=== PATIENT | male | born 1950 | race African-American/Black ===

== ENCOUNTER 2023-12-15 18:28 | Inpatient (IN) | payer OTHER, MEDICAID ==
[~2023-12-15] VITALS: Ht 175.3 cm; Wt 94.3 kg
[2023-12-15 19:20] VITALS: BP_SYST 183; PULSE 86; RESP 17; TEMP 98; O2SAT 99
[2023-12-15 19:37] LABS: ANION GAP 12 (5-15); CALCIUM 8.1 mg/dL (8.4-11.0); CARBON DIOXIDE 25 mmol/L (23-29); CHLORIDE 112 mmol/L (98-107); CREATININE 3.26 mg/dL (0.55-1.30); GLUCOSE 141 mg/dL (74-106); POTASSIUM 3.9 mmol/L (3.5-5.1); SODIUM SERUM 149 mmol/L (136-145); UREA NITROGEN, BLOOD 47 mg/dL (8-21)
[2023-12-15 19:56] LABS: ALANINE AMINOTRANSFERASE 13 U/L (12-78); ALBUMIN 2.4 g/dL (3.4-4.8); ASPARTATE AMINOTRANSFERASE 13 U/L (10-37); TOTAL BILIRUBIN 0.2 mg/dL (0.0-1.0); TOTAL PROTEIN, SERUM 7.2 g/dL (6.4-8.3)
[2023-12-15 20:10] LABS: BILIRUBIN,DIRECT 0.1 mg/dL (0.0-0.3)
[2023-12-15 20:30] VITALS: O2SAT 95
[2023-12-15 22:28] LABS: BASOPHILS % (AUTO) 0.4 % (0.0-2.0); EOSINOPHILS # (AUTO) 0.2 K/uL (0.0-0.4); EOSINOPHILS % (AUTO) 3.9 % (0.0-4.0); HEMATOCRIT 36.9 % (36-54); HEMOGLOBIN 12.3 g/dL (14.0-18.0); LYMPHOCYTES # (AUTO) 1.5 K/uL (1.0-5.5); MEAN CORPUSCULAR HEMOGLOBIN 33 pg (27-31); MEAN CORPUSCULAR HGB CONC 33 % (32-36); MEAN CORPUSCULAR VOLUME 100 fL (79.0-98.0); MONOCYTES # (AUTO) 0.7 K/uL (0.0-1.0); MONOCYTES % (AUTO) 12.4 % (1.7-9.3); NEUTROPHILS # (AUTO) 3.2 K/uL (1.8-7.7); NEUTROPHILS % (AUTO) 56.3 % (40.0-70.0); PLATELET COUNT (AUTO) 168 K/uL (130-430); RED BLOOD CELL COUNT(AUTO) 3.68 MIL/uL (4.2-6.2); RED CELL DISTRIBUTION WIDTH 15.4 % (9.0-15.0); WHITE BLOOD COUNT (AUTO) 5.7 K/uL (4.8-10.8)
[2023-12-15] MEDS: NACL 0.9% 1,000 ML IV ONE (23:25)
[2023-12-15 23:59] LABS: BILIRUBIN,URINE NEGATIVE (NEGATIVE); BLOOD, URINE 1+ (NEGATIVE); CLARITY/URINE SL CLOUDY (CLEAR); COLOR,URINE YELLOW (YELLOW); GLUCOSE,URINE NEGATIVE (NEGATIVE); KETONES,URINE NEGATIVE (NEGATIVE); LEUKOCYTE ESTERASE ,URINE 2+ (NEGATIVE); NITRITE, URINE POSITIVE (NEGATIVE); PROTEIN URINE 3+ (NEGATIVE); UROBILINOGEN,URINE 0.2 (0.2-1.0)
[2023-12-16] MEDS ORDERED: OXYB5TAB16 PO (00:35)
[2023-12-16] MEDS ORDERED: LIP20 PO (00:35)
[2023-12-16] MEDS ORDERED: MONT-40 PO (00:35)
[2023-12-16] MEDS ORDERED: SITA100T11 PO (00:35)
[2023-12-16] MEDS ORDERED: NEU400 PO (00:35)
[2023-12-16] MEDS ORDERED: FINA-37 PO (00:35)
[2023-12-16] MEDS ORDERED: LOSA-415 PO (00:35)
[2023-12-16] MEDS ORDERED: FURO-150 PO (00:35)
[2023-12-16] MEDS ORDERED: METF-379 PO (00:35)
[2023-12-16] MEDS ORDERED: LOP600 PO (00:35)
[2023-12-16] MEDS ORDERED: ASPI-1393 PO (00:35)
[2023-12-16] MEDS ORDERED: FAMO20TA8 PO (00:35)
[2023-12-16 01:08] LABS: BACTERIA,URINE MODERATE /HPF (None Seen)
[2023-12-16 01:18] LABS: BARBITURATE, URINE NEGATIVE (NEG <=200)
[2023-12-16 01:19] LABS: BENZODIAZEPINE, URINE NEGATIVE (NEG <=150); CANNABINOID, URINE NEGATIVE (NEG <=50); COCAINE, URINE NEGATIVE (NEG <=150); METHAMPHETAMINES SCREEN,URINE NEGATIVE (NEG <=500); OPIATE, URINE NEGATIVE (NEG <=100); PHENCYCLIDINE SCREEN,URINE NEGATIVE (NEG <=25); URINE AMPHETAMINE NEGATIVE (NEG <=500); URINE METHADONE NEGATIVE (NEG <=200); URINE OXYCODONE SCREEN NEGATIVE (NEG <=100)
[2023-12-16 01:20] LABS: UR TRICYCLIC ANTIDEPRESSANTS NEGATIVE (NEG <=300)
[2023-12-16] MEDS: cefTRIAXone 1 GM in D5W 50 ML IV ONE (01:24)
[2023-12-16] MEDS ORDERED: cefTRIAXone 1 GM VIAL ONE (01:26)
[2023-12-16] MEDS: D5/0.45 NS 1,000 ML IV SCH (06:46)
[2023-12-16 09:50] VITALS: BP_SYST 149; PULSE 68; RESP 18; TEMP 97.1; O2SAT 95
[2023-12-16 10:30] VITALS: BP_SYST 149; PULSE 68; RESP 17; TEMP 97.1; O2SAT 95
[2023-12-16] MEDS ORDERED: NALOXONE HCL 0.4 MG/ML AMP (NARCAN) IVP PRN ×2 (10:30)
[2023-12-16] MEDS ORDERED: HYDROcodone/ACETAMIN 5-325 MG TAB (NORCO/ VICODIN) PO PRN (10:30)
[2023-12-16] MEDS ORDERED: LORazepam 2 MG/ML VIAL IVP PRN (10:30)
[2023-12-16] MEDS ORDERED: HYDROcodone/ACETAMIN 10-325 MG TAB PO PRN (10:30)
[2023-12-16] MEDS ORDERED: ONDANSETRON HCL 4 MG/2 ML VIAL IVP PRN (10:30)
[2023-12-16 11:14] LABS: BASOPHILS % (AUTO) 0.4 % (0.0-2.0); EOSINOPHILS # (AUTO) 0.2 K/uL (0.0-0.4); EOSINOPHILS % (AUTO) 2.5 % (0.0-4.0); HEMATOCRIT 39.4 % (36-54); HEMOGLOBIN 13.2 g/dL (14.0-18.0); LYMPHOCYTES % (AUTO) 17.4 % (20.5-51.5); MEAN CORPUSCULAR HEMOGLOBIN 34 pg (27-31); MEAN CORPUSCULAR HGB CONC 34 % (32-36); MEAN CORPUSCULAR VOLUME 100 fL (79.0-98.0); MONOCYTES # (AUTO) 0.6 K/uL (0.0-1.0); MONOCYTES % (AUTO) 10.7 % (1.7-9.3); NEUTROPHILS # (AUTO) 4.1 K/uL (1.8-7.7); PLATELET COUNT (AUTO) 152 K/uL (130-430); RED BLOOD CELL COUNT(AUTO) 3.94 MIL/uL (4.2-6.2); RED CELL DISTRIBUTION WIDTH 15.6 % (9.0-15.0)
[2023-12-16 11:18] LABS: ALANINE AMINOTRANSFERASE 14 U/L (12-78); ALBUMIN 2.6 g/dL (3.4-4.8); ANION GAP 13 (5-15); ASPARTATE AMINOTRANSFERASE 14 U/L (10-37); CALCIUM 8.4 mg/dL (8.4-11.0); CARBON DIOXIDE 26 mmol/L (23-29); CHLORIDE 114 mmol/L (98-107); CREATININE 3.12 mg/dL (0.55-1.30); GLUCOSE 103 mg/dL (74-106); PHOSPHORUS 4.6 mg/dL (2.7-4.5); SODIUM SERUM 153 mmol/L (136-145); TOTAL BILIRUBIN 0.2 mg/dL (0.0-1.0); TOTAL PROTEIN, SERUM 7.7 g/dL (6.4-8.3); UREA NITROGEN, BLOOD 44 mg/dL (8-21)
[2023-12-16] MEDS: FUROSEMIDE 20 MG TABLET PO ONE (11:25)
[2023-12-16] MEDS: FINASTERIDE 5 MG TABLET (PROSCAR) PO ONE (11:26)
[2023-12-16] MEDS: FAMOTIDINE 20 MG TABLET PO ONE (11:26)
[2023-12-16] MEDS: ASPIRIN 81 MG TABLET(ECOTRIN) PO ONE (11:26)
[2023-12-16] MEDS: oxyBUTYnin chloride 5 MG TABLET PO ONE (11:26)
[2023-12-16] MEDS: NACL 0.9% 1,000 ML IV SCH (11:36)
[2023-12-16 11:40] VITALS: BP_SYST 149; PULSE 61; RESP 17; TEMP 97.9; O2SAT 95
[2023-12-16] MEDS: metroNIDAZOLE 250 mg/NS 50 ML IV SCH (14:05)
[2023-12-16 18:23] VITALS: BP_SYST 152; PULSE 65; RESP 18; TEMP 98; O2SAT 96
[2023-12-16] MEDS: MONTELUKAST 10 MG TABLET PO SCH (18:42)
[2023-12-16 20:05] VITALS: BP_SYST 168; PULSE 62; RESP 18; TEMP 98.2; O2SAT 95
[2023-12-16] MEDS: GEMFIBROZIL 600 MG TABLET (LOPID) PO SCH (21:41)
[2023-12-16] MEDS: GABAPENTIN 400 MG CAPSULE PO SCH (21:42)
[2023-12-16] MEDS: LOSARTAN POTASSIUM 50 MG TABLET (COZAAR) PO SCH (21:42)
[2023-12-16] MEDS: ATORVASTATIN 20 MG TABLET PO SCH (21:42)
[2023-12-16] MEDS: INSULIN REGULAR, HUMAN 100 UNITS/ML, 3 ML VIAL (humuLIN R) SUBCUT PRN (22:26)
[2023-12-16 23:30] VITALS: O2SAT 95
[2023-12-17 00:10] VITALS: BP_SYST 154; PULSE 55; RESP 18; TEMP 97.7; O2SAT 95
[2023-12-17 05:57] LABS: BASOPHILS % (AUTO) 0.3 % (0.0-2.0); EOSINOPHILS # (AUTO) 0.2 K/uL (0.0-0.4); EOSINOPHILS % (AUTO) 2.8 % (0.0-4.0); HEMATOCRIT 38.2 % (36-54); LYMPHOCYTES % (AUTO) 16.5 % (20.5-51.5); MEAN CORPUSCULAR HEMOGLOBIN 34 pg (27-31); MEAN CORPUSCULAR HGB CONC 34 % (32-36); MEAN CORPUSCULAR VOLUME 99 fL (79.0-98.0); MONOCYTES # (AUTO) 0.7 K/uL (0.0-1.0); MONOCYTES % (AUTO) 12.7 % (1.7-9.3); NEUTROPHILS # (AUTO) 3.9 K/uL (1.8-7.7); NEUTROPHILS % (AUTO) 67.7 % (40.0-70.0); PLATELET COUNT (AUTO) 175 K/uL (130-430); RED BLOOD CELL COUNT(AUTO) 3.86 MIL/uL (4.2-6.2); RED CELL DISTRIBUTION WIDTH 15.3 % (9.0-15.0); WHITE BLOOD COUNT (AUTO) 5.8 K/uL (4.8-10.8)
[2023-12-17 06:46] LABS: ANION GAP 12 (5-15); CALCIUM 8.2 mg/dL (8.4-11.0); CARBON DIOXIDE 26 mmol/L (23-29); CHLORIDE 116 mmol/L (98-107); CREATININE 2.78 mg/dL (0.55-1.30); GLUCOSE 100 mg/dL (74-106); PHOSPHORUS 3.3 mg/dL (2.7-4.5); POTASSIUM 3.4 mmol/L (3.5-5.1); SODIUM SERUM 154 mmol/L (136-145); UREA NITROGEN, BLOOD 39 mg/dL (8-21)
[2023-12-17 08:00] VITALS: BP_SYST 171; PULSE 69; RESP 18; TEMP 97.8; O2SAT 95
[2023-12-17] MEDS: ASPIRIN 81 MG TABLET(ECOTRIN) PO SCH (09:05)
[2023-12-17] MEDS: FUROSEMIDE 20 MG TABLET PO SCH (09:06)
[2023-12-17] MEDS: FINASTERIDE 5 MG TABLET (PROSCAR) PO SCH (09:06)
[2023-12-17] MEDS: oxyBUTYnin chloride 5 MG TABLET PO SCH (09:06)
[2023-12-17] MEDS: FAMOTIDINE 20 MG TABLET PO SCH (09:08)
[2023-12-17] MEDS: cefTRIAXone 1 GM IVPB PREMIX 50 ML IV SCH (09:08)
[2023-12-17 09:46] VITALS: O2SAT 95
[2023-12-17 12:00] VITALS: BP_SYST 206
[2023-12-17] MEDS: NIFEdipine 30 MG TAB.ER.24 PO ONE (12:23)
[2023-12-17] MEDS: hydrALAZINE HCL 25 MG TABLET PO PRN (14:47)
[2023-12-17] MEDS ORDERED: OMEG100037 PO (15:05)
[2023-12-17] MEDS ORDERED: FOLI-43 PO (15:05)
[2023-12-17] MEDS ORDERED: ASCO500T20 PO (15:05)
[2023-12-17] MEDS ORDERED: MULT-1117 PO (15:05)
[2023-12-17] MEDS ORDERED: CHOL500052 PO (15:05)
[2023-12-17 20:14] VITALS: O2SAT 95
[2023-12-18 05:05] LABS: ERYTHROCYTE SEDIMENTATION RATE 39 MM/HR (0-15)
[2023-12-18 05:17] LABS: BASOPHILS % (AUTO) 0.4 % (0.0-2.0); EOSINOPHILS # (AUTO) 0.2 K/uL (0.0-0.4); HEMATOCRIT 40.1 % (36-54); HEMOGLOBIN 13.5 g/dL (14.0-18.0); LYMPHOCYTES # (AUTO) 1.5 K/uL (1.0-5.5); LYMPHOCYTES % (AUTO) 22.2 % (20.5-51.5); MEAN CORPUSCULAR HEMOGLOBIN 33 pg (27-31); MEAN CORPUSCULAR HGB CONC 34 % (32-36); MEAN CORPUSCULAR VOLUME 98 fL (79.0-98.0); MONOCYTES # (AUTO) 0.8 K/uL (0.0-1.0); MONOCYTES % (AUTO) 12.2 % (1.7-9.3); NEUTROPHILS # (AUTO) 4.2 K/uL (1.8-7.7); NEUTROPHILS % (AUTO) 62.2 % (40.0-70.0); PLATELET COUNT (AUTO) 210 K/uL (130-430); RED BLOOD CELL COUNT(AUTO) 4.09 MIL/uL (4.2-6.2); WHITE BLOOD COUNT (AUTO) 6.7 K/uL (4.8-10.8)
[2023-12-18 08:00] VITALS: O2SAT 96
[2023-12-18 08:10] LABS: ALANINE AMINOTRANSFERASE 14 U/L (12-78); ALBUMIN 2.5 g/dL (3.4-4.8); ANION GAP 9 (5-15); ASPARTATE AMINOTRANSFERASE 23 U/L (10-37); CALCIUM 8.2 mg/dL (8.4-11.0); CARBON DIOXIDE 27 mmol/L (23-29); CHLORIDE 112 mmol/L (98-107); CREATININE 2.87 mg/dL (0.55-1.30); GLUCOSE 125 mg/dL (74-106); PHOSPHORUS 2.5 mg/dL (2.7-4.5); POTASSIUM 3.2 mmol/L (3.5-5.1); SODIUM SERUM 148 mmol/L (136-145); TOTAL BILIRUBIN 0.3 mg/dL (0.0-1.0); TOTAL PROTEIN, SERUM 6.8 g/dL (6.4-8.3); UREA NITROGEN, BLOOD 33 mg/dL (8-21)
[2023-12-18 08:39] VITALS: BP_SYST 164; PULSE 67; RESP 18; TEMP 98; O2SAT 92
[2023-12-18] MEDS: NIFEdipine 30 MG TAB.ER.24 PO SCH (10:14)
[2023-12-18 19:00] VITALS: BP_SYST 156; PULSE 60; RESP 16; TEMP 99.6; O2SAT 96
[2023-12-18 20:00] VITALS: BP_SYST 156; PULSE 60; RESP 16; TEMP 99.6; O2SAT 96
[2023-12-19] VITALS (7 sets, daily range): BP systolic 127–154; PULSE 50–69; RESP 15–19; TEMP 97.8–98.9; O2SAT 3–99
[2023-12-19 06:52] LABS: BILIRUBIN,URINE NEGATIVE (NEGATIVE); BLOOD, URINE 2+ (NEGATIVE); CLARITY/URINE CLEAR (CLEAR); COLOR,URINE YELLOW (YELLOW); GLUCOSE,URINE 1+ (NEGATIVE); KETONES,URINE NEGATIVE (NEGATIVE); LEUKOCYTE ESTERASE ,URINE NEGATIVE (NEGATIVE); NITRITE, URINE NEGATIVE (NEGATIVE); PROTEIN URINE 3+ (NEGATIVE); UROBILINOGEN,URINE 0.2 (0.2-1.0)
[2023-12-19 07:21] LABS: BACTERIA,URINE FEW /HPF (None Seen); MUCUS,URINE 1+ /LPF (None Seen); WBC,URINE 0-3 /HPF (0-3)
[2023-12-19] MEDS: ACETAMINOPHEN 325 MG TABLET PO PRN (09:53)
[2023-12-19] MEDS: NIFEdipine 30 MG TAB.ER.24 PO SCH (11:10)
[2023-12-19 16:49] LABS: URINE SODIUM, RANDOM 80 mmol/L (40-220)
[2023-12-20 00:32] VITALS: BP_SYST 140; PULSE 67; RESP 18; TEMP 97.8; O2SAT 96
[2023-12-20 07:55] LABS: BASOPHILS % (AUTO) 0.5 % (0.0-2.0); EOSINOPHILS # (AUTO) 0.4 K/uL (0.0-0.4); EOSINOPHILS % (AUTO) 5.2 % (0.0-4.0); HEMATOCRIT 37.1 % (36-54); HEMOGLOBIN 12.7 g/dL (14.0-18.0); LYMPHOCYTES # (AUTO) 1.5 K/uL (1.0-5.5); LYMPHOCYTES % (AUTO) 21.2 % (20.5-51.5); MEAN CORPUSCULAR HEMOGLOBIN 34 pg (27-31); MEAN CORPUSCULAR HGB CONC 34 % (32-36); MEAN CORPUSCULAR VOLUME 99 fL (79.0-98.0); MONOCYTES # (AUTO) 0.8 K/uL (0.0-1.0); MONOCYTES % (AUTO) 10.5 % (1.7-9.3); NEUTROPHILS # (AUTO) 4.6 K/uL (1.8-7.7); NEUTROPHILS % (AUTO) 62.6 % (40.0-70.0); PLATELET COUNT (AUTO) 192 K/uL (130-430); RED BLOOD CELL COUNT(AUTO) 3.77 MIL/uL (4.2-6.2); RED CELL DISTRIBUTION WIDTH 14.5 % (9.0-15.0); WHITE BLOOD COUNT (AUTO) 7.3 K/uL (4.8-10.8)
[2023-12-20 08:15] LABS: ERYTHROCYTE SEDIMENTATION RATE 90 MM/HR (0-15)
[2023-12-20 08:22] LABS: ALANINE AMINOTRANSFERASE 19 U/L (12-78); ALBUMIN 2.2 g/dL (3.4-4.8); ANION GAP 15 (5-15); ASPARTATE AMINOTRANSFERASE 28 U/L (10-37); CALCIUM 8.2 mg/dL (8.4-11.0); CARBON DIOXIDE 25 mmol/L (23-29); CHLORIDE 111 mmol/L (98-107); CREATININE 3.34 mg/dL (0.55-1.30); GLUCOSE 156 mg/dL (74-106); POTASSIUM 3.5 mmol/L (3.5-5.1); SODIUM SERUM 151 mmol/L (136-145); TOTAL BILIRUBIN 0.2 mg/dL (0.0-1.0); TOTAL PROTEIN, SERUM 6.8 g/dL (6.4-8.3); UREA NITROGEN, BLOOD 38 mg/dL (8-21)
[2023-12-20 08:24] VITALS: BP_SYST 145; PULSE 53; RESP 18; TEMP 98.3; O2SAT 97
[2023-12-20 08:26] VITALS: O2SAT 3
[2023-12-20 13:36] VITALS: BP_SYST 140; PULSE 82; RESP 18; TEMP 98; O2SAT 97
[2023-12-20] MEDS ORDERED: ROCPM1 IV (14:38)
[2023-12-20] MEDS ORDERED: METR-343 PO (14:38)
[2023-12-20 15:46] VITALS: BP_SYST 140; PULSE 82; RESP 18; TEMP 98; O2SAT 97
[2023-12-21] MEDS ORDERED: POLYETHYLENE GLYCOL 3350, 17 GM/ POWD.PACK PO SCH (09:00)
== END 2023-12-20 19:24 | DRG 871 ==
LOC: SED 18:28 → SMU 12-16 01:07 → STU 12-16 07:41 → SMU 12-17 16:07
PROVIDERS: ADMIT Preventive Medicine Preventive Medicine/Occupational Environmental Medicine; ATTEND Preventive Medicine Preventive Medicine/Occupational Environmental Medicine
DX: A41.9 Sepsis, unspecified organism (principal); G93.41 Metabolic encephalopathy; N17.0 Acute kidney failure with tubular necrosis; N39.0 Urinary tract infection, site not specified; I42.9 Cardiomyopathy, unspecified; D64.9 Anemia, unspecified; E88.09 Other disorders of plasma-protein metabolism, not elsewhere classified; E78.5 Hyperlipidemia, unspecified; E86.0 Dehydration; E11.65 Type 2 diabetes mellitus with hyperglycemia; K21.9 Gastro-esophageal reflux disease without esophagitis; I12.9 Hypertensive chronic kidney disease with stage 1 through stage 4 chronic kidney disease, or unspecified chronic kidney disease; E11.22 Type 2 diabetes mellitus with diabetic chronic kidney disease; N18.9 Chronic kidney disease, unspecified; Z88.8 Allergy status to other drugs, medicaments and biological substances; B96.89 Other specified bacterial agents as the cause of diseases classified elsewhere
CPT/HCPCS: 36415; 70450-TC; 71045; 76376; 76770; 80048; 80053; 80076; 80307; 81000; 81001; 81015; 82570; 82948; 83605; 83735; 83880; 84100; 84302; 84484; 85025; 85651; 87040; 87081; 87086; 93005; 93306; 96360; 97110-GP; 97116-GP; 97530-GP; 99291; G0378; J0696; J1815; J3490